=== PATIENT | female | born 1950 | race Caucasian/White ===

== ENCOUNTER 2021-05-17 16:55 | Observation (INO) ==
[2021-05-17 18:49] LABS: Basophils # 0.1 10*3/uL (0.0-0.2); Basophils % 0.5 % (0.0-0.8); Eosinophils # 0.3 10*3/uL (0.0-0.87); Eosinophils % 3.4 % (0.00-10.9); Hematocrit 40.8 VOL% (35.7-47.0); Hemoglobin 13.8 GM/DL (12.0-16.0); Immature Granulocytes % 0.3 %; Immature Granulocytes Absolute 0.03 #; Lymphocytes % 20.6 % (21.3-54.2); Mean Corpuscular HGB Conc 33.8 GM/DL (32-36); Mean Platelet Volume 9.9 FL (9.6-12.0); Monocytes % 11.9 % (1.7-12.7); Neutrophils % 63.3 % (38.7-73.9); Platelet Count 277 T/CUMM (130-400); Red Cell Distribution Width 14.6 % (9.3-17.3); White Blood Count 9.6 T/CUMM (4-12)
[2021-05-17 19:12] LABS: Albumin 4.2 G/DL (3.4-5.0); Bilirubin,Total 0.72 MG/DL (0.2-1.0); Calcium 9.6 MG/DL (8.5-10.1)
[2021-05-17 19:13] LABS: Potassium 4.2 MMOL/L (3.5-5.1)
[2021-05-17] MEDS ORDERED: DOCUSATE SODIUM 100 MG CAPSULE PO PRN (20:29)
[2021-05-17] MEDS ORDERED: ONDANSETRON 4 MG/2 ML VIAL IV PRN (20:29)
[2021-05-17] MEDS ORDERED: GLUCAGON 1 MG VIAL IM PRN (20:29)
[2021-05-17] MEDS ORDERED: ACETAMINOPHEN 325 MG TABLET PO PRN (20:29)
[2021-05-17] MEDS ORDERED: MORPHINE 4 MG/1 ML VIAL IV PRN (20:29)
[2021-05-17] MEDS ORDERED: DEXTROSE 50% 25 GM/50 ML VIAL IV PRN (20:29)
[2021-05-17] MEDS ORDERED: ASPIRIN 325 MG TABLET PO STA (21:38)
[2021-05-17] MEDS ORDERED: ENOXAPARIN 100 MG/ML SYRINGE SUBCUT STA (21:39)
[2021-05-17] MEDS ORDERED: NITROGLYCERIN SL 0.4 MG TABLET SL PRN (22:15)
[2021-05-18 04:33] LABS: Basophils # 0.1 10*3/uL (0.0-0.2); Basophils % 0.8 % (0.0-0.8); Eosinophils # 0.3 10*3/uL (0.0-0.87); Eosinophils % 4.5 % (0.00-10.9); Hematocrit 40.4 VOL% (35.7-47.0); Hemoglobin 13.4 GM/DL (12.0-16.0); Immature Granulocytes % 0.4 %; Immature Granulocytes Absolute 0.03 #; Lymphocytes % 26.3 % (21.3-54.2); Mean Corpuscular HGB Conc 33.2 GM/DL (32-36); Mean Corpuscular Volume 82.1 FL (87-102); Mean Platelet Volume 10.5 FL (9.6-12.0); Monocytes % 11.6 % (1.7-12.7); Neutrophils % 56.4 % (38.7-73.9); Platelet Count 246 T/CUMM (130-400); Red Blood Count 4.92 MC/CUMM (3.8-5.5); Red Cell Distribution Width 14.8 % (9.3-17.3); White Blood Count 7.4 T/CUMM (4-12)
[2021-05-18 05:19] LABS: Calcium 9.5 MG/DL (8.5-10.1); Osmolality,Calculated 277.7 MOS/KG (273-304); Potassium 5.1 MMOL/L (3.5-5.1); Risk Ratio 6.38; Thyroid Stimulating Hormone 2.7 uIU/ml (0.358-3.74); VLDL Cholesterol 44.6 MG/DL
[2021-05-18] MEDS ORDERED: POTASSIUM CHLORIDE RIDER 10 MEQ/100 ML PREMIX IV PRN (08:57)
[2021-05-18] MEDS ORDERED: MAGNESIUM SULF RIDER 2 GM/50 ML PREMIX IV PRN (08:57)
[2021-05-18] MEDS ORDERED: ENOXAPARIN 80 MG/0.8 ML SYRINGE SUBCUT SCH (09:00)
[2021-05-18] MEDS: SODIUM CHLORIDE 0.45% 1,000 ML IV SCH ×2 (10:38→21:46)
[2021-05-18] MEDS ORDERED: HEPARIN/NACL 0.9% 2 UNITS/ML 2,000 UNIT/1,000 ML BAG IV ONE (10:51)
[2021-05-18] MEDS ORDERED: diphenhydrAMINE CAP 50 MG CAPSULE PO ONE (11:00)
[2021-05-18] MEDS ORDERED: DIAZEPAM 5 MG TABLET PO ONE (11:00)
[2021-05-18] MEDS ORDERED: HYDROmorphone 2 MG/1 ML VIAL ONE (11:09)
[2021-05-18] MEDS ORDERED: LIDOCAINE 1% 20 ML VIAL ONE (11:09)
[2021-05-18] MEDS ORDERED: MIDAZOLAM 2 MG/2 ML VIAL ONE (11:10)
[2021-05-18] MEDS ORDERED: VERAPAMIL 5 MG/2 ML VIAL ONE (11:28)
[2021-05-18] MEDS ORDERED: NITROGLYCERIN DRIP 50 MG/250 ML BOTTLE IV ONE (11:28)
[2021-05-18] MEDS ORDERED: TIROFIBAN 5,000 MCG/100 ML PREMIX IV ONE (11:36)
[2021-05-18] MEDS ORDERED: LABETALOL 20 MG/4 ML SYRINGE IV ONE (11:49)
[2021-05-18] MEDS ORDERED: PRASUGREL 10 MG TABLET ONE ×2 (12:19→12:20)
[2021-05-18] MEDS: VALSARTAN 80 MG TABLET PO SCH (16:15)
[2021-05-18] MEDS ORDERED: ROSUVASTATIN 20 MG TABLET PO SCH (21:00)
[2021-05-19 04:48] LABS: Basophils # 0.1 10*3/uL (0.0-0.2); Basophils % 0.8 % (0.0-0.8); Eosinophils # 0.2 10*3/uL (0.0-0.87); Eosinophils % 2.5 % (0.00-10.9); Hematocrit 38.5 VOL% (35.7-47.0); Hemoglobin 12.9 GM/DL (12.0-16.0); Immature Granulocytes % 0.3 %; Immature Granulocytes Absolute 0.02 #; Lymphocytes # 0.7 10*3/uL (1.4-4.0); Lymphocytes % 10.8 % (21.3-54.2); Mean Corpuscular HGB Conc 33.5 GM/DL (32-36); Mean Corpuscular Volume 81.7 FL (87-102); Mean Platelet Volume 10.6 FL (9.6-12.0); Monocytes % 16.3 % (1.7-12.7); Neutrophils % 69.3 % (38.7-73.9); Platelet Count 201 T/CUMM (130-400); Red Blood Count 4.71 MC/CUMM (3.8-5.5); Red Cell Distribution Width 14.9 % (9.3-17.3); White Blood Count 6.4 T/CUMM (4-12)
[2021-05-19 05:09] LABS: Calcium 9.1 MG/DL (8.5-10.1); Osmolality,Calculated 267.4 MOS/KG (273-304); Potassium 4.3 MMOL/L (3.5-5.1)
[2021-05-19 05:10] LABS: Atypical Lymphocytes Few; Band Neutrophils 6 % (0-10); Eosinophils 1 % (0-10); Lymphocytes 15 % (20-55); Segmented Neutrophils 68 % (50-85); Total Cells Counted 100
[2021-05-19 05:11] LABS: Hypochromasia 1+; Microcytosis 1+; Platelet Estimate Normal
[2021-05-19 08:20] VITALS: BP 195/80
[2021-05-19] MEDS: VALSARTAN 80 MG TABLET PO SCH (08:29)
[2021-05-19] MEDS ORDERED: PRASUGREL 10 MG TABLET PO SCH (09:00)
[2021-05-19] MEDS ORDERED: ASPIRIN EC 81 MG TABLET PO SCH (09:00)
[2021-05-19] MEDS ORDERED: VALSARTAN 80 MG TABLET PO ONE (09:22)
[2021-05-19] MEDS: SODIUM CHLORIDE 0.45% 1,000 ML IV SCH (09:31)
[2021-05-20] MEDS ORDERED: VALSARTAN 80 MG TABLET PO SCH (09:00)
== END 2021-05-19 11:43 | disposition home or self-care (01) ==
LOC: N.2W 16:55 → N.ED 16:55 → N.TELEN 16:55 → N.EDINP 16:55 → N.2WOUT 16:56 → N.2E 20:27 → N.2WOUT 20:27 → N.EDINP 23:14 → N.2WOUT 23:14 → N.TELEN 23:33 → N.2W 05-19 09:34 → UNDODISOB 05-19 11:43 → UNDODEPREF 06-01 16:04
PROVIDERS: ADMIT Internal Medicine; ATTEND Internal Medicine